=== PATIENT | male | born 1960 | race Caucasian/White ===

== ENCOUNTER 2017-09-19 20:52 | Observation (INO) | payer SELFPAY ==
[2017-09-19] MEDS ORDERED: LORazepam 2 MG/ML MDV IVPUSH ONE (21:20)
[2017-09-19] MEDS ORDERED: Sodium Chloride 0.9% 1,000 ML IV SCH (21:30)
--- NOTE | 2017-09-19 21:48 | EDM.PDOC ---
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 He felt a bit "off" all day, but things didn't start feeling worse until about an hour after eating 3 pieces of grocery store chicken for lunch. Although he felt a bit nauseated with that he is able to continue working on his truck, then he did some snow shoveling and then guided the snow plow the clear some snow away. He hadn't done much no clawing when he started getting even worse with the nausea and started vomiting. He is been known to have motion sickness fairly frequently. Vomiting continued, then he started developing numbness in his chin and then going into his hands. Next he started feeling that he would pass out and this made him quite nervous and decided to come in. In the eminence he vomited and then felt better, felt improved on arrival.. In emergency did have some more emesis of food and then felt better after that. No chest pain no difficulty breathing No abdominal pain No diarrhea Nausea before the emesis. At home he did take some Pepto-Bismol He's had motion sickness before but never to this extent. He's never had the numbness of his hands and chin before EMS reported that he was tachycardic and hyperventilating and fairly anxious. They did an EKG that showed a bundle branch block pattern. - Related Data Allergies Allergy/AdvReac Type Severity Reaction Status Date / Time No Known Allergies Allergy Verified 09/19/17 20:58 Home Meds: Home Meds Lisinopril 10 mg PO DAILY 09/19/17 [History] Sertraline HCl [Zoloft] 50 mg PO DAILY 09/19/17 [History] Past Medical History Cardiovascular History: Reports: Hypertension Gastrointestinal History: Reports: Hiatal Hernia Psychiatric History: Reports: Depression - Past Surgical History Musculoskeletal Surgical History: Reports: Arthroscopic Knee Social & Family History - Tobacco Use Smoking Status *Q: Never Smoker - Caffeine Use Caffeine Use: Reports: None - Recreational Drug Use Recreational Drug Use: No ED ROS GENERAL - Review of Systems Review Of Systems: See Below Constitutional: Reports: Malaise, Diaphoresis. Denies: Fever, Decreased Appetite HEENT: Reports: No Symptoms Respiratory: Reports: No Symptoms Cardiovascular: Reports: No Symptoms GI/Abdominal: Reports: Nausea, Vomiting. Denies: Abdominal Pain, Diarrhea Musculoskeletal: Reports: No Symptoms Skin: Reports: Pallor Neurological: Reports: Numbness (Chin and hands). Denies: Headache, Syncope ( [place] like he might pass out), Trouble Speaking, Gait Disturbance Hematologic/Lymphatic: Reports: No Symptoms Immunologic: Reports: No Symptoms ED EXAM, GENERAL - Physical Exam Exam: See Below Exam Limited By: No Limitations General Appearance: Alert, Anxious, Moderate Distress, Other (Detailed diaphoretic tachypnea, normal saturation, mild elevation blood pressure) Eye Exam: Bilateral Eye: Normal Inspection Ears: Normal External Exam, Hearing Grossly Normal Nose: Normal Inspection Throat/Mouth: Normal Inspection, Normal Oropharynx, Normal Voice Head: Atraumatic Neck: Non-Tender. No: Lymphadenopathy (R), Lymphadenopathy (L) Respiratory/Chest: No Respiratory Distress, Lungs Clear, No Accessory Muscle Use , Other Cardiovascular: Regular Rate, Rhythm, Tachycardia (Rate 101) GI/Abdominal: Normal Bowel Sounds, Soft, Non-Tender, No Distention. No: Rigid, Rebound Back Exam: Normal Inspection Extremities: Normal Inspection Neurological: Alert, Oriented, No Motor/Sensory Deficits Psychiatric: Anxious Skin Exam: Warm, Diaphoretic Lymphatic: No Adenopathy Course - Vital Signs Last Recorded V/S: Last Vital Signs Temp 35 C L 09/19/17 23:24 Pulse 68 09/19/17 23:24 Resp 16 09/19/17 23:24 BP 112/65 09/19/17 23:24 Pulse Ox 99 09/19/17 23:24 - Orders/Labs/Meds Orders: Active Orders 24 hr Category Date Time Status Patient Status [ADT] Routine ADT 09/19/17 23:42 Active Bedrest Bathroom Privileges [RC] ASDIRECTED Care 09/19/17 23:42 Active Cardiac Monitoring [RC] CONTINUOUS Care 09/19/17 23:44 Active Height and Weight [RC] DAILY Care 09/19/17 23:42 Active Intake and Output [RC] QSHIFT Care 09/19/17 23:44 Active Oxygen Therapy [RC] PRN Care 09/19/17 23:42 Active Pulse Oximetry [RC] CONTINUOUS Care 09/19/17 23:44 Active RT Aerosol Therapy [RC] ASDIRECTED Care 09/19/17 23:47 Active VTE/DVT Education [RC] Per Unit Routine Care 09/19/17 23:42 Active Vital Signs [RC] Q4H Care 09/19/17 23:42 Active 2 Gram Sodium Diet [DIET] Diet 09/19/17 Breakfast Active Chest 1V Frontal [CR] Stat Exams 09/19/17 22:32 Taken BASIC METABOLIC PANEL,BMP [CHEM] AM Lab 09/20/17 05:11 Ordered CBC W/O DIFF,HEMOGRAM [HEME] AM Lab 09/20/17 05:11 Ordered GLYCOSYLATED HEMOGLOBIN,HGBA1C [CHEM] AM Lab 09/20/17 05:11 Ordered TROPONIN I [CHEM] Timed Lab 09/20/17 01:00 Ordered Acetaminophen [Tylenol] Med 09/19/17 23:42 Active 650 mg PO Q4H PRN Acetaminophen/HYDROcodone [[place] 325-5 MG] Med 09/19/17 23:42 Active 1 tab PO Q4H PRN Albuterol [Proventil Neb Soln] Med 09/19/17 23:42 Active 2.5 mg NEB Q4H PRN Heparin Sodium Med 09/19/17 23:45 Active 5,000 units SUBCUT Q8H LORazepam [Ativan] Med 09/19/17 23:42 Active 1 mg IV Q6H PRN Ondansetron [Zofran ODT] Med 09/19/17 23:42 Active 4 mg PO Q6H PRN Sodium Chloride 0.9% [Normal Saline] 1,000 ml Med 09/19/17 21:30 Active IV ASDIRECTED Medication Orders Acetaminophen (Tylenol) 650 mg PO Q4H PRN PRN Reason: Pain (Mild 1-3)/fever Hydrocodone Bitart/Acetaminophen ([place] 325-5 Mg) 1 tab PO Q4H PRN PRN Reason: Pain (moderate 4-6) Albuterol (Proventil Neb Soln) 2.5 mg NEB Q4H PRN PRN Reason: Shortness Of Breath/wheezing Heparin Sodium (Porcine) (Heparin Sodium) 5,000 units SUBCUT Q8H [facility] Sodium Chloride (Normal Saline) 1,000 mls @ 250 mls/hr IV ASDIRECTED [facility] Last Admin: 09/19/17 21:29 Dose: 250 mls/hr Lorazepam (Ativan) 1 mg IV Q6H PRN PRN Reason: Anxiety Ondansetron HCl (Zofran Odt) 4 mg PO Q6H PRN PRN Reason: Nausea able to take PO Labs: Laboratory Tests 09/19/17 09/19/17 09/19/17 Range/Units 21:30 21:33 21:33 WBC 13.4 H (4.5-11.0) K/uL RBC 4.85 (4.30-5.90) M/uL Hgb 14.6 (12.0-15.0) g/dL Hct 41.7 (40.0-54.0) % MCV 86 (80-98) fL MCH 30 (27-31) pg MCHC 35 (32-36) % Plt Count 281 (150-400) K/uL D-Dimer, Quantitative 316 (0.0-400.0) ng/mL ABG Hemoglobin (13.5-18.0) g/dL ABG Oxyhemoglobin % ABG Carboxyhemoglobin (0.0-1.6) % ABG Methemoglobin % VBG pH (7.350-7.450) VBG pCO2 mm/Hg VBG pO2 mm/Hg VBG HCO3 mmol/L VBG Total CO2 mmol/L VBG O2 Saturation VBG O2 Content %vol VBG Base Excess mm/L O2 Delivery Device Sodium 143 (140-148) mmol/L Potassium 3.6 (3.6-5.2) mmol/L Chloride 104 (100-108) mmol/L Carbon Dioxide 19 L (21-32) mmol/L Anion Gap 23.6 H (5.0-14.0) mmol/L BUN 22 H (7-18) mg/dL Creatinine 1.6 H (0.8-1.3) mg/dL Est Cr Clr Drug Dosing 50.94 mL/min Estimated GFR (MDRD) 45 L (>60) Glucose 191 H (74-106) mg/dL Calcium 9.7 (8.5-10.1) mg/dL Total Bilirubin 0.4 (0.2-1.0) mg/dL AST 44 H (15-37) U/L ALT 91 H (12-78) U/L Alkaline Phosphatase 89 (46-116) U/L Troponin I < 0.017 (0.000-0.056) ng/mL Total Protein 7.2 (6.4-8.2) g/dL Albumin 4.1 (3.4-5.0) g/dL Globulin 3.1 (2.3-3.5) g/dL Albumin/Globulin Ratio 1.3 (1.2-2.2) Lipase 113 (73-393) U/L 09/19/17 Range/Units 21:33 WBC (4.5-11.0) K/uL RBC (4.30-5.90) M/uL Hgb (12.0-15.0) g/dL Hct (40.0-54.0) % MCV (80-98) fL MCH (27-31) pg MCHC (32-36) % Plt Count (150-400) K/uL D-Dimer, Quantitative (0.0-400.0) ng/mL ABG Hemoglobin 14.5 (13.5-18.0) g/dL ABG Oxyhemoglobin 81.1 % ABG Carboxyhemoglobin 2.0 H (0.0-1.6) % ABG Methemoglobin 1.1 % VBG pH 7.675 H (7.350-7.450) VBG pCO2 15.7 mm/Hg VBG pO2 37.5 mm/Hg VBG HCO3 18.6 mmol/L VBG Total CO2 15.5 mmol/L VBG O2 Saturation 83.7 VBG O2 Content 16.5 %vol VBG Base Excess 0.7 mm/L O2 Delivery Device Room air Sodium (140-148) mmol/L Potassium (3.6-5.2) mmol/L Chloride (100-108) mmol/L Carbon Dioxide (21-32) mmol/L Anion Gap (5.0-14.0) mmol/L BUN (7-18) mg/dL Creatinine (0.8-1.3) mg/dL Est Cr Clr Drug Dosing mL/min Estimated GFR (MDRD) (>60) Glucose (74-106) mg/dL Calcium (8.5-10.1) mg/dL Total Bilirubin (0.2-1.0) mg/dL AST (15-37) U/L ALT (12-78) U/L Alkaline Phosphatase (46-116) U/L Troponin I (0.000-0.056) ng/mL Total Protein (6.4-8.2) g/dL Albumin (3.4-5.0) g/dL Globulin (2.3-3.5) g/dL Albumin/Globulin Ratio (1.2-2.2) Lipase (73-393) U/L Meds: Medications Generic Name Dose Route Start Last Admin Trade Name Bebe PRN Reason Stop Dose Admin Acetaminophen 650 mg 09/19/17 23:42 Tylenol PO Q4H PRN Pain (Mild 1-3)/fever Hydrocodone Bitart/Acetaminophen 1 tab 09/19/17 23:42 [place] 325-5 Mg PO Q4H PRN Pain (moderate 4-6) Albuterol 2.5 mg 09/19/17 23:42 Proventil Neb Soln NEB Q4H PRN Shortness Of Breath/wheezing Heparin Sodium (Porcine) 5,000 units 09/19/17 23:45 Heparin Sodium SUBCUT Q8H [facility] Sodium Chloride 1,000 mls @ 250 mls/hr 09/19/17 21:30 09/19/17 21:29 Normal Saline IV 250 mls/hr ASDIRECTED [facility] Administration Lorazepam 1 mg 09/19/17 23:42 Ativan IV Q6H PRN Anxiety Ondansetron HCl 4 mg 09/19/17 23:42 Zofran Odt PO Q6H PRN Nausea able to take PO Discontinued Medications Generic Name Dose Route Start Last Admin Trade Name Bebe PRN Reason Stop Dose Admin Lorazepam 1 mg 09/19/17 21:20 09/19/17 21:26 Ativan IVPUSH 09/19/17 21:21 1 mg ONETIME ONE Administration - Re-Assessments/Exams Free Text/Narrative Re-Assessment/Exam: 09/19/17 21:50 57-year-old male with onset of nausea vomiting numbness tachycardia tachypnea Visibly anxious Differential diagnosis includes hyperventilation syndrome, motion sickness, food related illness among others Normal saline IV, lorazepam 1 mg IV Venous blood gases show respiratory alkalosis He EKG shows sinus tachycardia rate 101 with right bundle branch block, no old EKG for comparison 09/19/17 21:51 09/19/17 23:27 portable chest x-ray negative by my interpretation D-dimer is normal Troponin normal Mild elevation ofALP and 18 09/19/17 23:52 it is unclear exactly what is going on with this gentleman, he has had some vomiting which may be due to the food or to motion sickness He has had some numbness and visible hyperventilation which could be the result of or the cause of anxiety No evidence of heart or lung disease at this point He does have mild elevations of his hepatic enzymes and his glucose and urea creatinine. Consult on-call physician for overnight observation rule out cardiac ischemia Continue IV fluids Departure - Departure Time of Disposition: 23:51 Disposition: Refer to Observation Condition: Good Clinical Impression: Hyperventilation, Elevated blood sugar, Elevated serum creatinine, Elevated transaminase level Nausea and vomiting Qualifiers: Vomiting type: unspecified Vomiting Intractability: non-intractable Qualified Code(s): R11.2 - Nausea with vomiting, unspecified - Discharge Information - My Orders Last 24 Hours: My Active Orders 09/19/17 21:30 Sodium Chloride 0.9% [Normal Saline] 1,000 ml IV ASDIRECTED 09/19/17 22:32 Chest 1V Frontal [CR] Stat - Assessment/Plan Last 24 Hours: My Active Orders 09/19/17 21:30 Sodium Chloride 0.9% [Normal Saline] 1,000 ml IV ASDIRECTED 09/19/17 22:32 Chest 1V Frontal [CR] Stat
[2017-09-19] MEDS ORDERED: LORazepam 2 MG/ML MDV IV PRN (23:42)
[2017-09-19] MEDS ORDERED: Ondansetron 4 MG Tab.DIS PO PRN (23:42)
[2017-09-19] MEDS ORDERED: Acetaminophen/HYDROcodone 325-5 MG Tab PO PRN (23:42)
[2017-09-19] MEDS ORDERED: Acetaminophen 325 MG Tab PO PRN (23:42)
[2017-09-19] MEDS ORDERED: Albuterol 0.083% 2.5 MG/3 ML Neb Soln NEB PRN (23:42)
[2017-09-19] MEDS ORDERED: Heparin Sodium 5,000 Units/ML Vial SUBCUT SCH (23:45)
[2017-09-20] MEDS ORDERED: Morphine 2 MG/ML Syringe IVPUSH PRN (00:21)
[2017-09-20] MEDS ORDERED: Sodium Chloride 0.9% 1,000 ML IV SCH ×2 (00:30→00:45)
--- NOTE | 2017-09-20 01:42 | PCM.HP ---
H&P History of Present Illness - General Date of Service: 09/19/17 Admit Problem/Dx: Admission Diagnosis/Problem Admission Diagnosis/Problem Hypothermia hyperventilation, CO poisoning Source of Information: Patient History Limitations: Reports: No Limitations - History of Present Illness Initial Comments - Free Text/Narative: Came to the ED with the complaining of nausea, vomiting, dizziness and near syncope episodes. Patient reports that symptoms started this morning which is gradually progressing. 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 Patient continuously did welding approximately 4-5 hours in a closed room. Patient had 2 episodes of vomiting after eating outside food in the afternoon. Patient denies any similar complaints before. Patient denies any chest pain, abdominal pain, exertional chest pain, breathing difficulty, headaches, tingling, numbness sensation in bilateral lower and upper extremity. Patient felt tingling and numbness sensation in the lower part of the face which radiated to left arm. Patient called EMS with these concerns. In the ED patient had basic lab work which showed blood pH elevated with carboxyhemoglobin levels are elevated with low temperature. Patient reports that he did not drink any water since morning. Patient urine showed ketones are positive. Blood urea levels are elevated with mild creatinine elevation 1.6. Patient received 250 mL of bolus and 1 dose of Ativan for the anxiety episode. Patient troponin levels are at baseline. Mild WBC elevation. Patient denies any recent fever, upper respiratory symptoms. Patient is full code. Other review of systems are not significant - Related Data Allergies/Adverse Reactions: Allergies Allergy/AdvReac Type Severity Reaction Status Date / Time No Known Allergies Allergy Verified 09/19/17 20:58 Home Medications: Home Meds Lisinopril 10 mg PO DAILY 09/19/17 [History] Sertraline HCl [Zoloft] 50 mg PO DAILY 09/19/17 [History] Diclofenac Sodium [Voltaren] 50 mg PO BID 09/20/17 [History] Omeprazole 40 mg PO DAILY 09/20/17 [History] Ondansetron [Zofran ODT] 4 mg PO Q4H PRN #10 tab.dis 09/20/17 [Rx] Past Medical History Cardiovascular History: Reports: Hypertension Gastrointestinal History: Reports: Hiatal Hernia Psychiatric History: Reports: Depression - Infectious Disease History Infectious Disease History: Reports: Chicken Pox, Influenza, Measles - Past Surgical History HEENT Surgical History: Reports: LASIK Cardiovascular Surgical History: Reports: None GI Surgical History: Reports: None Musculoskeletal Surgical History: Reports: Arthroscopic Knee Social & Family History - Family History Family Medical History: Noncontributory - Tobacco Use Smoking Status *Q: Never Smoker Second Hand Smoke Exposure: No - Caffeine Use Caffeine Use: Reports: Coffee Other Caffeine Use: 24oz a day - Recreational Drug Use Recreational Drug Use: No H&P Review of Systems - Review of Systems: Review Of Systems: See Below General: Denies: Fever, Chills Pulmonary: Reports: Shortness of Breath. Denies: Wheezing, Pleuritic Chest Pain , Cough, Sputum Cardiovascular: Reports: Lightheadedness. Denies: Chest Pain, Palpitations, Dyspnea on Exertion, Orthopnea, PND, Syncope, Claudication Gastrointestinal: Denies: Abdominal Pain, Anorexia, Bloody Stool, Constipation Genitourinary: Denies: Dysuria, Frequency Musculoskeletal: Denies: Neck Pain, Shoulder Pain Skin: Denies: Cyanosis, Jaundice Psychiatric: Denies: Confusion, Depression, Mood Lability Neurological: Denies: Confusion, Dizziness, Headache Hematologic/Lymphatic: Denies: Anemia, Easy Bleeding Immunologic: Denies: Anaphylaxis Exam - Exam Exam: See Below - Vital Signs Vital Signs: Last Vital Signs Temp 36.2 C 09/20/17 00:29 Pulse 85 09/20/17 00:29 Resp 18 09/20/17 00:29 BP 136/82 09/20/17 00:29 Pulse Ox 95 09/20/17 00:45 Weight: 110.54 kg - Exam Quality Assessment: Supplemental Oxygen General: Alert, Oriented HEENT: PERRLA, Conjunctiva Clear Neck: Supple, Trachea Midline Lungs: Clear to Auscultation, Normal Respiratory Effort Cardiovascular: Regular Rate, Regular Rhythm GI/Abdominal Exam: Normal Bowel Sounds, Soft Back Exam: Normal Inspection, Full Range of Motion Extremities: Normal Inspection, Normal Range of Motion Skin: Warm, Dry, Intact Neurological: Cranial Nerves Intact Neuro Extensive - Mental Status: Alert, Oriented x3 - Patient Data Lab Results Last 24 hrs: Laboratory Results - last 24 hr 09/19/17 09/19/17 Range/Units 23:52 23:52 Lactic Acid 5.0 H (0.4-2.0) mmol/L Creatine Kinase 218 (39-308) U/L Result Diagrams: 09/20/17 04:00 09/20/17 04:00 *Q Meaningful Use (ADM) - VTE *Q VTE Criteria *Q: - Stroke *Q Stroke Criteria *Q: - AMI *Q AMI Criteria *Q: - Problem List (1) Carbon monoxide poisoning SNOMED Code(s): 35323732 ICD Code: T58.91XA - TOXIC EFFECT OF CARB MONX FROM UNSP SOURCE, ACC, INIT Status: Acute (2) Acute respiratory alkalosis SNOMED Code(s): 12255392 ICD Code: E87.3 - ALKALOSIS Status: Acute (3) Metabolic acidosis with respiratory alkalosis SNOMED Code(s): 302251435 ICD Code: E87.2 - ACIDOSIS; E87.3 - ALKALOSIS Status: Acute (4) Hypertension SNOMED Code(s): 54694310 ICD Code: I10 - ESSENTIAL (PRIMARY) HYPERTENSION Status: Acute (5) Anxiety and depression SNOMED Code(s): 407871112 ICD Code: F41.8 - OTHER SPECIFIED ANXIETY DISORDERS Status: Acute (6) Dehydration SNOMED Code(s): 60825449 ICD Code: E86.0 - DEHYDRATION Status: Acute (7) Elevated blood sugar SNOMED Code(s): 55148189 ICD Code: R73.9 - HYPERGLYCEMIA, UNSPECIFIED Status: Acute (8) Elevated serum creatinine SNOMED Code(s): 109203749 ICD Code: R79.89 - OTHER SPECIFIED ABNORMAL FINDINGS OF BLOOD CHEMISTRY Status: Acute (9) Hyperventilation SNOMED Code(s): 97093045 ICD Code: R06.4 - HYPERVENTILATION Status: Acute (10) Nausea and vomiting SNOMED Code(s): 29393928 ICD Code: R11.2 - NAUSEA WITH VOMITING, UNSPECIFIED Status: Acute Qualifiers: Vomiting type: unspecified Vomiting Intractability: non-intractable Qualified Code(s): R11.2 - Nausea with vomiting, unspecified Problem List Initiated/Reviewed/Updated: Yes Orders Last 24hrs: Active Orders 24 hr Category Date Time Status CULTURE BLOOD [BC] Urgent Lab 09/20/17 00:30 Received CULTURE BLOOD [BC] Urgent Lab 09/20/17 00:40 Received CULTURE URINE [RM] Routine Lab 09/20/17 01:37 Ordered GLYCOSYLATED HEMOGLOBIN,HGBA1C [CHEM] AM Lab 09/20/17 05:11 Ordered LACTIC ACID [CHEM] AM Lab 09/20/17 05:11 Ordered TROPONIN I [CHEM] Routine Lab 09/20/17 01:00 Ordered TROPONIN I [CHEM] Stat Lab 09/20/17 01:37 Ordered UA W/MICROSCOPIC [URIN] Routine Lab 09/20/17 01:37 Ordered Ciprofloxacin in D5W [Cipro in D5W 400 MG/200 ML] 400 Med 09/20/17 01:00 Active mg Premix Bag 1 bag IV Q12H Morphine Med 09/20/17 00:21 Active 2 mg IVPUSH Q4H PRN Piperacillin/Tazobactam [Zosyn] 3.375 gm Med 09/20/17 02:00 Active Sodium Chloride 0.9% [Normal Saline] 50 ml IV Q6H Sodium Chloride 0.9% [Normal Saline] 1,000 ml Med 09/20/17 00:30 Active IV ASDIRECTED Sodium Chloride 0.9% [Normal Saline] 1,000 ml Med 09/20/17 00:45 Active IV ASDIRECTED Blood Culture x2 Reflex Set [OM.PC] Urgent Oth 09/20/17 00:34 Ordered EKG 12 Lead [EK] Routine Ther 09/19/17 23:55 Ordered Medication Orders Acetaminophen (Tylenol) 650 mg PO Q4H PRN PRN Reason: Pain (Mild 1-3)/fever Albuterol (Proventil Neb Soln) 2.5 mg NEB Q4H PRN PRN Reason: Shortness Of Breath/wheezing Heparin Sodium (Porcine) (Heparin Sodium) 5,000 units SUBCUT Q8H [facility] Last Admin: 09/20/17 01:09 Dose: 5,000 units Sodium Chloride (Normal Saline) 1,000 mls @ 250 mls/hr IV ASDIRECTED [facility] Last Admin: 09/19/17 21:29 Dose: 250 mls/hr Sodium Chloride (Normal Saline) 1,000 mls @ 125 mls/hr IV ASDIRECTED [facility] Sodium Chloride (Normal Saline) 1,000 mls @ 1,000 mls/hr IV ASDIRECTED [facility] Last Admin: 09/20/17 01:34 Dose: 1,000 mls/hr Ciprofloxacin/Dextrose 400 mg/ (Premix) 200 mls @ 200 mls/hr IV Q12H [facility] Piperacillin Sod/Tazobactam (Sod 3.375 gm/ Sodium Chloride) 50 mls @ 100 mls/ hr IV Q6H [facility] Last Admin: 09/20/17 01:12 Dose: 100 mls/hr Lorazepam (Ativan) 1 mg IV Q6H PRN PRN Reason: Anxiety Morphine Sulfate (Morphine) 2 mg IVPUSH Q4H PRN PRN Reason: Pain (moderate 4-6) Ondansetron HCl (Zofran Odt) 4 mg PO Q6H PRN PRN Reason: Nausea able to take PO Assessment/Plan Comment:: Patient lab results showed elevated carboxyhemoglobin, lactic acid 5.0, continues mild hypothermia, creatinine elevation 1.6, CK levels are within normal limit, urine ketones are positive mild WBC elevation, tachypnea along with tachycardia Based on history and physical examination possibility of multiple diagnoses sepsis, Carbon monoxide poisoning, dehydration, hypothermia induced respiratory alkalosis along with metabolic acidosis Will do symptomatic treatment Will administer 1500 mL of bolus warm normal saline Will administer oxygen with nasal cannula with the concerns of carbon monoxide poisoning We will repeat lactic acid in the morning Will start ciprofloxacin and Zosyn with the concerns of sepsis Will follow urine culture, blood culture reports Will continue Ativan for intermittent anxiety, panic symptoms CBC, CMP tomorrow Repeat troponins are within normal limit no ST-T wave changes in the EKG will follow his prognosis DVT prophylaxis heparin subcutaneous CODE STATUS full code IV fluids 125 mL per hour normal saline maintenance Guerra catheter not needed Diet low-sodium diet
[2017-09-20] MEDS: Ciprofloxacin in D5W 400 MG in Premix Bag 1 BAG IV SCH ×4 (01:58→14:30)
[2017-09-20] MEDS ORDERED: Piperacillin/Tazobactam 3.375 GM in Sodium Chloride 0.9% 50 ML IV SCH (02:00)
[2017-09-20] MEDS ORDERED: Sodium Chloride 0.9% 500 ML IV ONE (02:35)
[2017-09-20] MEDS: Piperacillin/Tazobactam/Dext 3.375 GM in Premix Bag 1 BAG IV SCH ×2 (08:12→14:40)
--- NOTE | 2017-09-20 08:59 | CR ---
CHEST: AP portable CLINICAL HISTORY:Shortness of breath COMPARISON:None FINDINGS: Heart and pulmonary vascularity appear normal. No infiltrate effusion or pneumothorax seen .. IMPRESSION: No acute cardiopulmonary process
[2017-09-20] MEDS ORDERED: Heparin Sodium 5,000 Units/ML Vial SUBCUT SCH (10:00)
--- NOTE | 2017-09-20 15:46 | PCM.DCSUM1 ---
Discharge Summary - Hospital Course Brief History: Mr. Beasley is a 57-year-old gentleman who was admitted to observation status through the emergency department with nausea vomiting, dehydration, and hyperventilation causing severe respiratory alkalosis. - Discharge Data Discharge Date: 09/20/17 Discharge Disposition: Home, Self-Care 01 Condition: Fair - Discharge Diagnosis/Problem(s) (1) Dehydration SNOMED Code(s): 14730212 ICD Code: E86.0 - DEHYDRATION Status: Acute Current Visit: Yes (2) Nausea and vomiting SNOMED Code(s): 59073009 ICD Code: R11.2 - NAUSEA WITH VOMITING, UNSPECIFIED Status: Acute Current Visit: Yes Qualifiers: Vomiting type: unspecified Vomiting Intractability: non-intractable Qualified Code(s): R11.2 - Nausea with vomiting, unspecified (3) Hyperventilation SNOMED Code(s): 64996056 ICD Code: R06.4 - HYPERVENTILATION Status: Acute Current Visit: Yes - Patient Summary/Data Hospital Course: Mr. Beasley is a 57-year-old gentleman who felt well until yesterday afternoon evening. 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 He did some following and developed worsening symptoms of nausea. He also had eaten some fried chicken from the grocery store. He developed significant nausea and feelings of imbalance, with vomiting. He denied any spinning or whirling sensation. He began to feel very anxious and then developed numbness around his mouth and face as well as in his hands and feet. He was brought into the emergency department by EMS and was noted to be hyperventilating. Auditory tests were consistent with significant hyperventilation and respiratory alkalosis with partial metabolic compensation. There was question of possible infection with a modest elevation in white blood cell count but no significant temperature elevation. He was given IV fluids for hydration and IV lorazepam for management of anxiety and hyperventilation. With these interventions hyperventilation slowed and by the following morning acid-base imbalances had almost totally corrected. Was felt likely that he experienced possible effects from the argon with welding, versus food poisoning, with a probable component of motion sickness. These effects were complicated by the development of a panic attack with anxiety and hyperventilation. He was still feeling mild symptoms of nausea on the day of discharge but tolerated a regular diet prior to discharge to home. Activity will be as tolerated, I have instructed him to take it easy over the next 24-48 hours. He will resume his usual diet and follow -up with primary care will be as needed. There was no evidence of significant infection and antibiotics will be discontinued at the time of discharge. - Patient Instructions Diet: Usual Diet as Tolerated Activity: As Tolerated - Discharge Plan Prescriptions/Med Rec: Ondansetron [Zofran ODT] 4 mg PO Q4H PRN #10 tab.dis PRN Reason: Nausea Home Medications: Home Meds Lisinopril 10 mg PO DAILY 09/19/17 [History] Sertraline HCl [Zoloft] 50 mg PO DAILY 09/19/17 [History] Diclofenac Sodium [Voltaren] 50 mg PO BID 09/20/17 [History] Omeprazole 40 mg PO DAILY 09/20/17 [History] Ondansetron [Zofran ODT] 4 mg PO Q4H PRN #10 tab.dis 09/20/17 [Rx] - Patient Data Vitals - Most Recent: Last Vital Signs Temp 96.7 F 09/20/17 15:13 Pulse 66 09/20/17 15:13 Resp 20 09/20/17 15:13 BP 129/94 H 09/20/17 15:13 Pulse Ox 0 L 09/20/17 15:13 Weight - Most Recent: 243 lb 11.184 oz I&O - Last 24 hours: Intake & Output 09/20/17 09/20/17 09/20/17 06:59 14:59 22:59 Intake Total 1971 490 500 Output Total 450 1000 Balance 1521 -510 500 Lab Results - Last 24 hrs: Laboratory Results - last 24 hr 09/19/17 09/19/17 09/20/17 Range/Units 23:52 23:52 01:37 WBC (4.5-11.0) K/uL RBC (4.30-5.90) M/uL Hgb (12.0-15.0) g/dL Hct (40.0-54.0) % MCV (80-98) fL MCH (27-31) pg MCHC (32-36) % Plt Count (150-400) K/uL Sodium (140-148) mmol/L Potassium (3.6-5.2) mmol/L Chloride (100-108) mmol/L Carbon Dioxide (21-32) mmol/L Anion Gap (5.0-14.0) mmol/L BUN (7-18) mg/dL Creatinine (0.8-1.3) mg/dL Est Cr Clr Drug Dosing mL/min Estimated GFR (MDRD) (>60) Glucose (74-106) mg/dL Hemoglobin A1c (4.5-6.2) % Lactic Acid 5.0 H (0.4-2.0) mmol/L Calcium (8.5-10.1) mg/dL Creatine Kinase 218 (39-308) U/L Troponin I (0.000-0.056) ng/mL Urine Color Yellow Urine Appearance Clear Urine pH 8.0 (4.5-8.0) Ur Specific [place] 1.010 (1.008-1.030) Urine Protein Negative (NEGATIVE) mg/dL Urine Glucose (UA) Normal (NEGATIVE) mg/dL Urine Ketones 50 H (NEGATIVE) mg/dL Urine Occult Blood Negative (NEGATIVE) Urine Nitrite Negative (NEGAITVE) Urine Bilirubin Negative (NEGATIVE) Urine Urobilinogen Normal (NORMAL) mg/dL Ur Leukocyte Esterase Negative (NEGATIVE) Urine RBC Not seen (0-5) Urine WBC Not seen (0-5) Ur Epithelial Cells Not seen Amorphous Sediment Rare Urine Bacteria Not seen Urine Mucus Not seen 09/20/17 09/20/17 09/20/17 Range/Units 01:37 04:00 04:00 WBC 11.2 H (4.5-11.0) K/uL RBC 4.07 L (4.30-5.90) M/uL Hgb 12.0 D (12.0-15.0) g/dL Hct 35.9 L (40.0-54.0) % MCV 88 (80-98) fL MCH 30 (27-31) pg MCHC 33 (32-36) % Plt Count 217 (150-400) K/uL Sodium 144 (140-148) mmol/L Potassium 4.3 (3.6-5.2) mmol/L Chloride 109 H (100-108) mmol/L Carbon Dioxide 25 (21-32) mmol/L Anion Gap 14.3 H (5.0-14.0) mmol/L BUN 18 (7-18) mg/dL Creatinine 1.2 (0.8-1.3) mg/dL Est Cr Clr Drug Dosing 67.92 mL/min Estimated GFR (MDRD) > 60 (>60) Glucose 116 H (74-106) mg/dL Hemoglobin A1c (4.5-6.2) % Lactic Acid (0.4-2.0) mmol/L Calcium 8.4 L (8.5-10.1) mg/dL Creatine Kinase (39-308) U/L Troponin I < 0.017 (0.000-0.056) ng/mL Urine Color Urine Appearance Urine pH (4.5-8.0) Ur Specific [place] (1.008-1.030) Urine Protein (NEGATIVE) mg/dL Urine Glucose (UA) (NEGATIVE) mg/dL Urine Ketones (NEGATIVE) mg/dL Urine Occult Blood (NEGATIVE) Urine Nitrite (NEGAITVE) Urine Bilirubin (NEGATIVE) Urine Urobilinogen (NORMAL) mg/dL Ur Leukocyte Esterase (NEGATIVE) Urine RBC (0-5) Urine WBC (0-5) Ur Epithelial Cells Amorphous Sediment Urine Bacteria Urine Mucus 09/20/17 09/20/17 Range/Units 04:00 04:00 WBC (4.5-11.0) K/uL RBC (4.30-5.90) M/uL Hgb (12.0-15.0) g/dL Hct (40.0-54.0) % MCV (80-98) fL MCH (27-31) pg MCHC (32-36) % Plt Count (150-400) K/uL Sodium (140-148) mmol/L Potassium (3.6-5.2) mmol/L Chloride (100-108) mmol/L Carbon Dioxide (21-32) mmol/L Anion Gap (5.0-14.0) mmol/L BUN (7-18) mg/dL Creatinine (0.8-1.3) mg/dL Est Cr Clr Drug Dosing mL/min Estimated GFR (MDRD) (>60) Glucose (74-106) mg/dL Hemoglobin A1c 5.8 (4.5-6.2) % Lactic Acid 1.0 (0.4-2.0) mmol/L Calcium (8.5-10.1) mg/dL Creatine Kinase (39-308) U/L Troponin I (0.000-0.056) ng/mL Urine Color Urine Appearance Urine pH (4.5-8.0) Ur Specific [place] (1.008-1.030) Urine Protein (NEGATIVE) mg/dL Urine Glucose (UA) (NEGATIVE) mg/dL Urine Ketones (NEGATIVE) mg/dL Urine Occult Blood (NEGATIVE) Urine Nitrite (NEGAITVE) Urine Bilirubin (NEGATIVE) Urine Urobilinogen (NORMAL) mg/dL Ur Leukocyte Esterase (NEGATIVE) Urine RBC (0-5) Urine WBC (0-5) Ur Epithelial Cells Amorphous Sediment Urine Bacteria Urine Mucus Med Orders - Current: Current Medications Acetaminophen (Tylenol) 650 mg PO Q4H PRN PRN Reason: Pain (Mild 1-3)/fever Last Admin: 09/20/17 11:33 Dose: 650 mg Albuterol (Proventil Neb Soln) 2.5 mg NEB Q4H PRN PRN Reason: Shortness Of Breath/wheezing Heparin Sodium (Porcine) (Heparin Sodium) 5,000 units SUBCUT Q8H [facility] Last Admin: 09/20/17 10:45 Dose: 5,000 units Sodium Chloride (Normal Saline) 1,000 mls @ 125 mls/hr IV ASDIRECTED [facility] Last Admin: 09/20/17 03:51 Dose: 125 mls/hr Ciprofloxacin/Dextrose 400 mg/ (Premix) 200 mls @ 200 mls/hr IV Q12H [facility] Last Admin: 09/20/17 14:30 Dose: 200 mls/hr Piperacillin/Tazobactam/ (Dextrose 3.375 gm/ Premix) 50 mls @ 100 mls/hr IV Q6H [facility] Last Admin: 09/20/17 14:40 Dose: Not Given Lorazepam (Ativan) 1 mg IV Q6H PRN PRN Reason: Anxiety Morphine Sulfate (Morphine) 2 mg IVPUSH Q4H PRN PRN Reason: Pain (moderate 4-6) Ondansetron HCl (Zofran Odt) 4 mg PO Q6H PRN PRN Reason: Nausea able to take PO Discontinued Medications Heparin Sodium (Porcine) (Heparin Sodium) 5,000 units SUBCUT Q8H [facility] Last Admin: 09/20/17 01:09 Dose: 5,000 units Sodium Chloride (Normal Saline) 1,000 mls @ 250 mls/hr IV ASDIRECTED [facility] Last Admin: 09/19/17 21:29 Dose: 250 mls/hr Sodium Chloride (Normal Saline) 1,000 mls @ 1,000 mls/hr IV ASDIRECTED [facility] Last Admin: 09/20/17 01:34 Dose: 1,000 mls/hr Piperacillin Sod/Tazobactam (Sod 3.375 gm/ Sodium Chloride) 50 mls @ 100 mls/ hr IV Q6H [facility] Last Admin: 09/20/17 01:12 Dose: 100 mls/hr Sodium Chloride (Normal Saline) 500 mls @ 500 mls/hr IV .BOLUS ONE Stop: 09/20/17 03:34 Last Admin: 09/20/17 03:47 Dose: 500 mls/hr Lorazepam (Ativan) 1 mg IVPUSH ONETIME ONE Stop: 09/19/17 21:21 Last Admin: 09/19/17 21:26 Dose: 1 mg - Exam General: Reports: Alert, Oriented, Cooperative, No Acute Distress Lungs: Reports: Clear to Auscultation, Normal Respiratory Effort Cardiovascular: Reports: Regular Rate, Regular Rhythm, No Murmurs GI/Abdominal Exam: Soft, Non-Tender, No Organomegaly, No Distention Extremities: Non-Tender, No Pedal Edema Skin: Reports: Warm, Dry, Intact *Q Meaningful Use (DIS) - VTE *Q VTE Criteria *Q: - Stroke *Q Stroke Criteria *Q: - AMI *Q AMI Criteria *Q:
== END 2017-09-20 16:40 | disposition home or self-care (01) ==
LOC: JP.ED 20:52 → JP.MS 23:42 → JP.SDSSCHI 09-20 11:50 → JP.MS 09-20 11:53
PROVIDERS: ADMIT Family Medicine; ATTEND Hospitalist
DX: E86.0 Dehydration (principal); R11.2 Nausea with vomiting, unspecified; R06.4 Hyperventilation; I10 Essential (primary) hypertension; F32.9 Major depressive disorder, single episode, unspecified; Z79.899 Other long term (current) drug therapy; Z98.890 Other specified postprocedural states
CPT/HCPCS: 36415; 71045; 80048; 80053; 81001; 82550; 82803; 83036; 83605; 83690; 84484; 85027; 85379; 87040; 87086; 93005; 93010; 96361; 96374; 99217; 99284; 99285; A9270; J0744; J1644; J2060; J2543; J7040; J7050

== ENCOUNTER 2024-07-30 06:47 | Day surgery (SDC) | payer BC ==
[2024-07-30] MEDS ORDERED: fentaNYL 50 MCG/ML SDV ONE (07:07)
[2024-07-30] MEDS ORDERED: Propofol 200 MG/20 ML SDV ONE ×2 (07:07→08:16)
[2024-07-30] MEDS: Lactated Ringers 1,000 ML IV SCH (07:39)
== END 2024-07-30 09:46 | disposition home or self-care (01) ==
LOC: JP.SDS 06:47
PROVIDERS: ATTEND Surgery
DX: K57.30 Diverticulosis of large intestine without perforation or abscess without bleeding (principal); K64.8 Other hemorrhoids
CPT/HCPCS: 00811; 45398; J2704; J3010; J7120